=== PATIENT | female | born 1945 | race Caucasian/White ===

== ENCOUNTER 2019-07-16 12:39 | Inpatient (IN) ==
[2019-07-16] MEDS ORDERED: LASIX IV ONE (13:46)
[2019-07-16 15:18] LABS: BASO# 0.02 X1000 (0.0-0.2); BASO% 0.2 % (0.0-0.8); EOS# 0.14 X1000 (0.0-0.7); EOS% 1.7 % (0.0-10.0); HEMATOCRIT 35.8 % (37.0-47.0); HEMOGLOBIN 11.6 g/dL (12.0-16.0); IMM GRAN# 0.02 X1000 (0.0-0.04); IMM GRAN% 0.2 % (0.0-0.5); LYMPH# 2.49 X1000 (1.2-3.4); LYMPH% 29.7 % (20.5-51.1); MCH 30.9 PG (27-31); MCHC 32.4 g/dL (33-37); MCV 95.5 FL (81-99); MONO% 9.6 % (1.7-9.3); MPV 9.7 FL (7.4-10.4); NEUT% 58.6 % (42.2-75.2); PLT 213 X1000 (130-400); RBC 3.75 XMIL (4.2-5.4); RDW 16.1 % (11.5-14.5); WBC 8.37 X1000 (4.8-10.8)
[2019-07-16 15:55] LABS: AGAP 16; ALB/GLOB RATIO 2.2; ALBUMIN 3.9 g/dL (3.5-5.0); ALKALINE PHOSPHATASE 61 U/L (32-104); BUN 17 mg/dL (8-22); CALCIUM 8.9 mg/dL (8.8-10.2); CHLORIDE 100 mmol/L (98-107); COSMO 277; CREATININE 0.8 mg/dL (0.5-0.9); ESTIMATED GFR > 60; GLUCOSE 94 mg/dL (70-104); GOT 28 U/L (10-30); GPT 32 U/L (10-36); POTASSIUM 3.8 mmol/L (3.5-5.1); SODIUM 138 mmol/L (136-145); TCO2 22 mmol/L (25-35); TOTAL BILIRUBIN 0.99 mg/dL (0.20-1.00); TOTAL PROTEIN 5.7 g/dL (6.3-8.3)
[2019-07-16] MEDS: FOLIC ACID PO SCH ×2 (16:06→16:08)
[2019-07-16 16:10] LABS: CK PROFILE 191 U/L (24-173)
[2019-07-16 16:29] LABS: CK-MB 3.73 ng/mL (0.0-5.0)
[2019-07-16] MEDS: TUSSIONEX LIQUID PO PRN (17:20)
[2019-07-16] MEDS: LOVENOX SUBQ SCH (17:20)
--- NOTE | 2019-07-16 17:25 | HISTORY AND PHYSICAL ---
CHIEF COMPLAINT: 1. Dyspnea on exertion. 2. Chest pain right across the precordium. 3. PND orthopnea with mild swelling of feet. HISTORY OF PRESENT ILLNESS: She is a 73-year-old white female previously seen by Dr. Nino and basically came to the office today with above symptoms. The patient has cough, mostly nocturnal cough while she was lying down. She also has dyspnea on exertion and chest pain right across. The patient was seen before by Dr. Boateng, that is her foster care therapist. Apparently, she has a low potassium recently and a monitor was done. I do not have the details. In my office, patient has elevated JVD and gallop with significant 3/6 systolic murmur in the mitral area. Chest x-ray showed cardiomegaly, which is increasing from the previous x-rays and fluid in the right major fissure. No pleural effusions noted. In light of the chest pain and CHF symptoms, the patient was given the options and she would rather be admitted and do a full workup which includes evaluation of the mitral regurgitation murmur. Rule out ischemic heart disease. As a result, the patient has been admitted in [facility]. PAST MEDICAL HISTORY: 1. Diverticulosis and lupus disease under the care of Dr. Trujillo. 2. Vitamin D deficiency. 3. Acid reflux disease. 4. Hypertension. 5. Left knee pain due to meniscal tear. 6. Allergic rhinitis. PAST SURGICAL HISTORY: Reported cholecystectomy, hysterectomy, back surgery, and neck surgery. MEDICATIONS: Cyclosporine Restasis drops one each in both eyes twice daily, trazodone 100 at bedtime, Plaquenil 200 p.o. b.i.d., Lipitor 40 daily ,VESIcare 5 mg in the morning, folic acid 1 mg t.i.d., Estriol 1 mg every day, Protonix 40 daily, Zanaflex 1 mg p.o. b.i.d., amlodipine 10 daily. ALLERGIES: Reported to cephalexin, penicillin, adhesive tape. SOCIAL HISTORY: She is single. Retired senior property accountant. Lives in [place]. Two kids. No smoking. No alcohol abuse. FAMILY HISTORY: Mother had acute respiratory failure, at the age of 72. Brother had kidney cancer. Father of heart attack. HEALTH MAINTENANCE: Flu vaccine 2018, pneumococcal Prevnar 13 in 2017, mammography in November 2018, colonoscopy two months ago by Dr. Saldivar in Med/Surg. REVIEW OF SYSTEMS: HEENT: No headache. No vision problem. No earache. No sore throat. Neck: Chronic neck pain. No goiter. No lymphadenopathy. Cardiopulmonary: Atypical chest pain. Dyspnea on exertion, PND, orthopnea. Mild swelling of feet. Gastrointestinal: No nausea, vomiting, abdominal pain. Genitourinary: No history of hesitancy, frequency, dysuria, hematuria. Musculoskeletal: Chronic back pain. Left knee pain under the knee brace. Skin: No skin rashes. Neurologic: No focal symptoms or weakness. PHYSICAL EXAMINATION: Temperature is 98 degrees, pulse 72, blood pressure 110/61. 5 feet 5 inches, 158 pounds, 2 L nasal cannula. HEENT: Atraumatic, normocephalic. Pupils equal, react to light. TMs are normal. Nose and throat within normal limits. NECK: JVD is elevated. CHEST: Bilateral air entry. No wheezing. No crackles. HEART: Sounds are regular with a gallop and a 3/6 systolic murmur, holosystolic in the left mitral area radiating to the axilla. ABDOMEN: Belly is soft, nontender. No hepatosplenomegaly. EXTREMITIES: 1+ pedal edema. NEUROLOGIC: No focal deficits. INVESTIGATIONS: CBC: White cell count 8.3, hematocrit 35.8, platelets 213,000. SMA 7: Sodium 138, potassium 3.8, BUN 17, creatinine 0.8. CK-MB index was negative. Troponin was negative. ProBNP 5000. Chest x-ray in my office: Cardiomegaly with fluid in the right major fissure. EKG is pending. ASSESSMENT AND PLAN: 1. A 73-year-old white female admitted to the hospital with symptoms/signs of congestive heart failure with severe mitral regurgitation on clinical exam and plan is for echocardiography quantification of the mitral regurgitation murmur . 2. Follow up on electrocardiogram. 3. Intravenous Lasix. Fluid restrictions, daily weights. 4. Rule out ischemic heart disease. Never had a stress test. We will consult with Dr. Boateng and once she is stable will consider further workup based on the foster care therapist. 5. Reconcile home medications. For cough we will use the Tussionex as needed. 6. Deep venous thrombosis prophylaxis with Lovenox and gastrointestinal prophylaxis with Protonix and will follow up. cc: Julio Booth MD
--- NOTE | 2019-07-16 18:33 | EKG Report ---
Test Performed on : 07/16/2019 4:47:32 PM Test Reason : chest pain Blood Pressure : / mmHG Vent. Rate : 073 BPM Atrial Rate : 073 BPM P-R Int : 158 ms QRS Dur : 078 ms QT Int : 420 ms P-R-T Axes : 081 050 062 degrees QTc Int : 462 ms Normal sinus rhythm. Normal ECG When compared with ECG of 02-DEC-2015 22:34, premature atrial complexes. are no longer present Criteria for Septal infarct are no longer present Nonspecific T wave abnormality no longer evident in Inferior leads Nonspecific T wave abnormality no longer evident in Anterior leads Confirmed by Irene RENTERIA, Maxime ([id number]) on 07/20/2019 8:48:19 AM
[2019-07-16] MEDS: RESTASIS 0.05% OPH DROPS BOTH EYES SCH (21:21)
[2019-07-16] MEDS: PLAQUENIL PO SCH (21:25)
[2019-07-16] MEDS: DESYREL PO SCH (21:26)
[2019-07-16] MEDS: ZANAFLEX PO SCH (21:28)
[2019-07-17] MEDS: PROTONIX PO SCH (06:12)
[2019-07-17] MEDS: ESTRACE PO SCH (08:24)
[2019-07-17] MEDS: LIPITOR PO SCH (08:25)
[2019-07-17] MEDS: VESICARE PO SCH (08:28)
[2019-07-17] MEDS: NORVASC PO SCH (08:29)
[2019-07-17] MEDS: ZANAFLEX PO SCH ×2 (08:29→21:15)
[2019-07-17] MEDS: LASIX IV SCH (08:31)
[2019-07-17] MEDS: PLAQUENIL PO SCH ×2 (08:31→21:15)
[2019-07-17] MEDS: RESTASIS 0.05% OPH DROPS BOTH EYES SCH ×2 (08:32→21:15)
[2019-07-17] MEDS: FOLIC ACID PO SCH ×3 (08:37→16:27)
--- NOTE | 2019-07-17 08:47 | PROGRESS NOTE ---
DATE: 07/17/2019 VITAL SIGNS: Stable with temperature 97.6 degrees, heart rate 76, respirations 16, blood pressure 141/62, O2 saturation on room air 96%. SUBJECTIVE: The patient states she feels better with less chest tightness and shortness of breath. LABORATORY DATA: CPK last evening was 191, MB 3.7, troponin less than 0.01. ProBNP 4228. Chest x-ray showed some cardiomegaly. PHYSICAL EXAMINATION: Chest: Chest to auscultation revealed 3/6 systolic ejection murmur at the left sternal border. Extremities: There is no ankle edema. Abdomen: Soft. She has been ambulatory to the bathroom. PLAN: Cardiology consultation, echocardiogram. She is given Lasix 40 mg IV daily. She is also on prophylactic Lovenox. cc: MD Julio Freitas MD
[2019-07-17] MEDS: TUSSIONEX LIQUID PO PRN (13:46)
--- NOTE | 2019-07-17 17:21 | ECHO REPORT ---
ORDER DATE: 07/16/2019 INTERPRETING PHYSICIAN: Dr. Akash Henderson. REQUESTING PHYSICIAN: Julio Booth MD. CLINICAL INDICATIONS: A 73-year-old female with cardiac embolism, CHF. M-MODE MEASUREMENTS: Left ventricle end diastole: 4.6 cm. Left ventricle end systole: 2.7 cm. Posterior wall: 0.9 cm. Interventricular septum: 1.3 cm. Left atrium: 4.4 cm. Aortic root: 2.8 cm. SUMMARY OF 2-DIMENSIONAL IMAGING: The study was difficult. 1. The lower left ventricular systolic function appears to be normal. Ejection fraction estimated at 65-70%. 2. There is evidence of malcoaptation of the leaflets of the mitral valve, leading to severe mitral regurgitation. 3. Pulse wave Doppler of pulmonary venous flow shows systolic reversal of flow. 4. The left atrium is moderately to significantly enlarged. 5. The aortic valve looks grossly normal. 6. The pulse wave Doppler of mitral inflow shows a pattern of a tall E wave and a short A wave. 7. Tissue Doppler of septal and lateral mitral annulus averages 10 cm per second. 8. There is no diastolic dysfunction. 9. The tricuspid valve shows moderately severe degree of regurgitation. 10.Pulmonary systolic pressure is estimated at 101 mmHg. 11.Pulmonic valve appears to be grossly normal with moderate degree of regurgitation. 12.There is no pericardial effusion, mass or thrombus. SUMMARY: In summary: 1. This study is very abnormal with severe degree of mitral regurgitation with malcoaptation of the leaflets of the mitral valve. 2. The left ventricular systolic function is preserved. 3. There is severe pulmonary hypertension. Clinical correlation is strongly recommended. cc: MD Julio Dobson MD [facility]
[2019-07-17] MEDS: LOVENOX SUBQ SCH (17:50)
[2019-07-17] MEDS: TYLENOL PO PRN (21:15)
[2019-07-17] MEDS: DESYREL PO SCH (21:15)
[2019-07-18] MEDS: PROTONIX PO SCH (06:06)
[2019-07-18] MEDS: ESTRACE PO SCH (08:55)
[2019-07-18] MEDS: FOLIC ACID PO SCH ×3 (08:56→16:56)
[2019-07-18] MEDS: VESICARE PO SCH (08:56)
[2019-07-18] MEDS: PLAQUENIL PO SCH ×2 (08:56→20:41)
[2019-07-18] MEDS: ZANAFLEX PO SCH ×2 (08:56→20:41)
[2019-07-18] MEDS: RESTASIS 0.05% OPH DROPS BOTH EYES SCH ×2 (09:13→20:41)
[2019-07-18] MEDS: NORCO-7.5 PO PRN (09:18)
[2019-07-18] MEDS: LASIX IV SCH (09:18)
[2019-07-18] MEDS: ROBITUSSIN-DM PO PRN ×2 (09:25→20:39)
--- NOTE | 2019-07-18 09:25 | PROGRESS NOTE ---
DATE: 07/18/2019 SUBJECTIVE: Vital signs stable with temperature 98 degrees, heart rate 66, respirations 12, blood pressure 133/65, O2 saturation on room air 98%. The patient complains of cough, unrelieved by Tussionex. She also complains of migraine headache. She said Imitrex, in the past, made her feel like she had "lock jaw." Heart to auscultation continues to reveal mid systolic ejection murmur. Echocardiogram showed severe mitral regurgitation with malcoaptation of the leaflets. There was severe pulmonary hypertension. Her usual glass forming engineer is Dr. Boateng. PLAN: Vandiver 7.5 for headache, and Robitussin DM for cough. Ejection fraction on her echo was normal at 65% to 70%. She may need some intervention related to her mitral valve. cc: MD Julio Freitas MD
--- NOTE | 2019-07-18 14:57 | Diag Imaging Result Doc PS360 ---
EXAM: CHEST-2 VIEWS HISTORY: CHF TECHNIQUE: Two views COMPARISON: 02/09/2016 FINDINGS: The lungs are well expanded. The heart is not enlarged. The vessels are not distended. There are mild increased interstitial markings in the left base. No consolidation. No pleural effusions. IMPRESSION: Mild fibrosis Electronically signed by Rasta Jesus 07/18/2019 2:55 PM
[2019-07-18 16:53] LABS: URINE SOURCE CLEAN CATCH
[2019-07-18 16:57] LABS: BILIRUBIN URINE NEGATIVE (NEGATIVE); BLOOD URINE NEGATIVE (NEGATIVE); COLOR STRAW; GLUCOSE URINE NEGATIVE (NEGATIVE); KETONE URINE NEGATIVE (NEGATIVE); LEUKOCYTES URINE NEGATIVE (NEGATIVE); NITRITE URINE NEGATIVE (NEGATIVE); PH URINE 6.5; PROTEIN URINE NEGATIVE (NEGATIVE); SP GRAVITY URINE 1.006; TURBIDITY URINE CLEAR (CLEAR); UR EPITHELIAL CELLS <10 /HPF (<10); URINE BACTERIA NEGATIVE /HPF; URINE RBC <10 /HPF (<10); URINE WBC <10 /HPF (<10); UROBILINOGEN URINE NORMAL (NORMAL)
[2019-07-18] MEDS: LOVENOX SUBQ SCH (17:09)
--- NOTE | 2019-07-18 17:35 | CARDIOLOGY CONSULTATION ---
DATE: 07/18/2019 CONSULTATION REQUESTED BY: Dr. Stevens on behalf of Dr. VINCENZO Booth. PRIMARY ENGINE SERVICE REPAIRER: Dr. Reji Boateng. REASON FOR CONSULTATION: Patient with CHF and mitral valve regurgitation. HISTORY: Mrs. Valentine is a 73-year-old female who presented to the hospital through Dr. Booth's office on 07/16/2019. At that time, she presented to his office complaining of dyspnea, cough, feeling short of breath, having paroxysmal nocturnal dyspnea, and pressure in the chest. All this has been going on for a while and it got to the point where she was not able to put up with it any longer. According to her, Dr. Booth did a chest x-ray and told her that she had heart failure and was admitted to the hospital with that diagnosis. A proBNP level was done on 07/16/2029 and is reported as elevated at 4228 pcg/mL. A 2D echocardiogram, which I read, shows wide-open mitral regurgitation, 4+ severe, with scarring of the mitral valve leaflets and mild coaptation of the leaflets with severe pulmonary hypertension. PAST MEDICAL HISTORY: Positive for lupus erythematosus. She has been treated by Dr. Trujillo. She has had complications with her lungs with atypical pneumonia in the past and she saw a driller's offsider. She has had also issues with her esophagus and has required esophageal stretching by Dr. Saldivar twice. The patient has chronic pain in the hands. SURGICAL HISTORY: She had cholecystectomy. She had three back surgeries and one neck surgery in the past. She had tubal ligation. Hysterectomy. SOCIAL HISTORY: She is . She is retired. She has two daughters. She is not a smoker. She is a retired manufacturing accountant. FAMILY HISTORY: Father had coronary heart disease. The patient has been diagnosed also with a coronary atherosclerosis noted on CT scan of the chest, hypertension and hyperlipidemia in the past. REVIEW OF SYSTEMS: She is not limited to ambulate by the lupus. However, she has chronic pain in the hand from it. 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 She has never had issues with deep venous thrombosis. HOME MEDICATIONS: At the time of this admission included alprazolam 1 mg twice, amlodipine 5 mg at bedtime, aspirin 81 daily, atenolol 50 twice a day, atorvastatin 40 mg in the morning, folic acid 2 mg daily, furosemide 20 mg as needed, gabapentin 300 twice a day, Plaquenil 200 twice a day, leflunomide 20 mg daily, losartan 25 mg daily, Meloxicam 7.5 twice a day, Protonix 40 mg daily, potassium chloride 10 mEq daily, prednisone 20 mg daily, Carafate 1 gram three times a day, Desyrel 100 mg at bedtime. PHYSICAL EXAMINATION: Vital signs: Blood pressure is 117/52, temperature 97.7 degrees, pulse 64, respirations 12. General: The patient is awake, alert, oriented, in no distress. HEENT: Unremarkable. Chest: Shows slightly diminished breath sounds bilaterally. Heart: Sounds are regular rhythm with a prominent systolic murmur over the mitral area, holosystolic, with a third heart sound. Abdomen: Nontender. Soft. No masses. No hepatomegaly. Extremities: Showed no significant edema. Pulses are slightly diminished. Neuro: Nonfocal. Moves four extremities. IMPRESSION: 1. Patient who has severe mitral regurgitation 4+ with severe pulmonary hypertension. The echocardiographic appearance of the mitral leaflets suggests scarring that has developed over the past three years based on review of previous echocardiogram. 2. Lupus erythematosus, systemic. 3. Hyperlipidemia. 4. Hypertension. 5. History of coronary atherosclerosis. 6. Congestive Heart Failure, diastolic, secondary to severe valvular regurgitation FC III-IV NYHA. RECOMMENDATION: At this time, we will run some additional test. We will do a CT scan of the chest to make sure that she does not have pulmonary fibrosis. We will check inflammatory markers. We will we need to determine the activity of her lupus. The case is going to be complicated because of her severe pulmonary hypertension. We may have to organize a transesophageal echocardiogram and right and left heart catheterization. We are going to check coagulation profile. will also check the presence of anticardiolipin antibodies. Further advice will be forthcoming. cc: MD Julio Dobson MD [facility]
[2019-07-18] MEDS ORDERED: BLISTEX MEDICATED BERRY LIP BALM TOP PRN (18:25)
[2019-07-18] MEDS: TYLENOL PO PRN (19:18)
[2019-07-18] MEDS: LIPITOR PO SCH (20:41)
[2019-07-18] MEDS: DESYREL PO SCH (20:41)
[2019-07-18] MEDS: NORVASC PO SCH (20:41)
[2019-07-19] MEDS: PROTONIX PO SCH (06:03)
[2019-07-19] MEDS: ROBITUSSIN-DM PO PRN ×2 (06:03→20:44)
[2019-07-19 06:27] LABS: INR 1.09; PROTIME 14.2 Seconds (11.0-16.0)
[2019-07-19 06:28] LABS: PTT 27.4 Seconds (22.3-41.8)
[2019-07-19 06:48] LABS: C REACTIVE PROT QUANT 6.23 mg/L (0.00-5.00)
--- NOTE | 2019-07-19 08:55 | CARDIOLOGY PROGRESS NOTE ---
DATE: 07/19/2019 CHIEF COMPLAINT: Shortness of breath. SUBJECTIVE: Ms. Valentine still is having some issues with persistent cough. She is not in any pain. She had an uneventful night. OBJECTIVE: Blood pressure is 125/57, temperature 98.3, pulse 63, respirations 17. She is awake, alert, oriented, in no distress. HEENT is unremarkable. Chest: Diminished breath sounds diffusely. Heart sounds are regular and rhythmic with a prominent systolic murmur 3/6 at the apex of the left ventricle with a third heart sound. Abdomen is nontender. Extremities showed no edema. Neurologic: Follows commands. Moves all 4 extremities. IMPRESSION: 1. The patient presented with congestive heart failure, paroxysmal nocturnal dyspnea, functional class 3 to 4, with evidence by echocardiography of severe mitral regurgitation with scarring of the leaflets of the mitral valve. 2. History of systemic lupus erythematosus. 3. History of coronary atherosclerosis. RECOMMENDATIONS: At this time, I am proposing to her to pursue transesophageal echocardiogram. Benefits, risks and complications were discussed. She understands, and she is willing to proceed. We will arrange for today. Further advice will be forthcoming. We have kept her n.p.o. cc: MD Julio Dobson MD
[2019-07-19] MEDS ORDERED: ARAVA PO SCH ×2 (09:00)
--- NOTE | 2019-07-19 09:00 | Diag Imaging Result Doc PS360 ---
CT THORAX W/O CONTRAST - 07/19/2019 INDICATION: pulmonary fibrosis COMPARISON: 03/07/2016 FINDINGS: There is mild peripheral interstitial pulmonary fibrosis. There is mild cardiomegaly. There is moderately advanced triple-vessel calcified coronary artery disease. There are small bilateral pleural effusions. There is interstitial pulmonary edema in the lung bases. No mass or adenopathy. There is a simple left renal cyst. Otherwise upper abdominal images are unremarkable. There are moderate degenerative changes of the spine. No acute or suspicious bony lesion. IMPRESSION: 1. Grossly stable pulmonary fibrosis. 2. Congestive heart failure. This exam was performed using automated exposure control, adjustment of mA or kV according to patient size, and/or use of iterative reconstruction technique Electronically signed by John Keating 07/19/2019 8:57 AM
[2019-07-19] MEDS ORDERED: XYLOCAINE 4% TOPICAL SOLUTION ONE (11:20)
[2019-07-19] MEDS ORDERED: DEMEROL ONE (11:20)
[2019-07-19] MEDS ORDERED: XYLOCAINE 2% VISCOUS ONE (11:20)
[2019-07-19] MEDS ORDERED: SODIUM CHLORIDE 0.9% 10 ML ONE (11:20)
[2019-07-19] MEDS ORDERED: VERSED ONE (11:21)
[2019-07-19] MEDS ORDERED: NS 1,000 ML ONE (11:34)
[2019-07-19] MEDS ORDERED: ANESTHESIA PB SET 88 IN 5742 ONE (11:34)
--- NOTE | 2019-07-19 12:34 | Transesophageal Echocardiogram ---
DATE: 07/19/2019 PHYSICIAN: Dr. Henderson REQUESTING PHYSICIAN: CLINICAL INDICATIONS: Suspected severe mitral regurgitation, severe pulmonary hypertension,abnormal echocardiogram. PROCEDURE: Transesophageal echocardiography DESCRIPTION: The patient was brought to the cardiac clam bed laborer. The throat was anesthetized with viscous lidocaine and Hurricaine. She received 2 doses of Versed 1 mg and Demerol 2 doses of 25 mg each one. The esophagus was intubated without difficulty. Multiple views of the cardiac structures were obtained. SUMMARY OF MAIN FINDINGS: The left atrium and the appendage appear to be dilated. The left atrial appendage is a large structure and shows normal flow velocities. Interatrial septum is intact. Agitated saline was injected, and there was no evidence of PFO. Right atrium is normal. Tricuspid valve is normal. Color flow mapping is unremarkable. Pulmonic valve is normal. Color flow mapping is unremarkable. Right ventricle has normal function. Aortic valve has 3 cusps, and they open normally. Color flow mapping is unremarkable. Ascending aorta and aortic root are unremarkable. Left ventricle shows normal function. Ejection fraction is 65% to 70%. Mitral valve shows mild degree of thickening of the leaflets. Color flow mapping indicates moderate to moderately severe degree of regurgitation. The pulse wave Doppler of pulmonary venous flow shows no evidence of any systolic reversal. The flow is normal in the right upper and left upper pulmonary veins. The descending thoracic aorta shows quite a bit of calcific plaque in the mid thoracic section. There is also some left pleural effusion noted. There is no pericardial effusion. There is no mass or thrombus. CONCLUSIONS: In summary, this transesophageal echocardiogram shows the presence of moderate to moderately severe degree of mitral regurgitation. When compared to the transthoracic echocardiogram that was done just 48 hours or 72 hours ago, there has been a significant change in the degree of regurgitation at the level of the mitral valve. This could potentially represent ischemia that has improved. RECOMMENDATIONS: The patient is advised to pursue right and left heart catheterization to reassess pulmonary hypertension and also evaluate for the possibility of severe coronary artery disease. cc: MD Julio Dobson MD [facility]
[2019-07-19] MEDS: CARAFATE PO SCH ×4 (13:15→18:06)
[2019-07-19] MEDS: FOLIC ACID PO SCH ×4 (13:15→18:06)
[2019-07-19] MEDS: LASIX IV SCH (15:00)
[2019-07-19] MEDS: ASPIRIN EC PO SCH (15:00)
[2019-07-19] MEDS: PLAQUENIL PO SCH ×2 (15:01→20:29)
[2019-07-19] MEDS: RESTASIS 0.05% OPH DROPS BOTH EYES SCH ×2 (15:01→20:30)
[2019-07-19] MEDS: VESICARE PO SCH (15:02)
[2019-07-19] MEDS: KLOR-CON PO SCH (15:02)
[2019-07-19] MEDS: ZANAFLEX PO SCH ×2 (15:06→20:30)
[2019-07-19] MEDS: ESTRACE PO SCH (15:06)
[2019-07-19] MEDS: LOVENOX SUBQ SCH ×2 (15:25→18:07)
[2019-07-19] MEDS: NEURONTIN PO SCH ×2 (15:25→20:30)
--- NOTE | 2019-07-19 18:46 | PROGRESS NOTE ---
DATE: 07/19/2019 SUBJECT: The patient is a little better, lost 10 pounds. Still nocturnal cough. I appreciate Dr. Henderson's consult. Based on his echocardiogram patient has severe MR with severe pulmonary hypertension. It does not look like mitral prolapse. He wants to rule out lupus- induced valvular heart disease. Patient is well known to Dr. Trujillo. REVIEW OF SYSTEMS: Otherwise none reported, going for transesophageal echocardiogram. PHYSICAL EXAM: Temperature is 97.5 degrees, pulse 67, blood pressure 136/54.HEENT: Within normal limits. Neck: Supple. JVD is less pronounced. Chest: Bilateral air entry. Heart: Sounds are regular. Murmur intensity decreased to 3/6 in the mitral area. 1+ pedal edema. Nonfocal exam. INVESTIGATIONS: ESR is 10. CRP 6.23. Cholesterol 130, LDL 64. Urinalysis is clear. RA factor is 10. Lupus inhibitor is unremarkable. ASSESSMENT AND PLAN: 1. Acute congestive heart failure due to diastolic dysfunction with valvular heart disease with severe mitral regurgitation and going for transesophageal echocardiogram. 2. Lupus disease. 3. Hypertension. PLAN: go for GIOVANNA and DVT prophylaxis with Lovenox. Continue IV Lasix and Dr. Henderson wants a rheumatology consult with Dr. Trujillo and also schedule for left heart catheterization to rule out ischemic heart disease and based on all these tests, further recommendations will be followed. Discussed the plan of care with the patient at bedside. I appreciated Dr. Henderson's consult. I spoke to Dr. Trujillo as well. LEVEL OF DOCUMENTATION: 25 minutes. cc: Julio Booth MD [facility]
[2019-07-19] MEDS: LIPITOR PO SCH (20:29)
[2019-07-19] MEDS: ARAVA PO SCH (20:30)
[2019-07-19] MEDS: DESYREL PO SCH (20:31)
[2019-07-19] MEDS: NORVASC PO SCH ×2 (20:31→20:33)
[2019-07-20] MEDS: PROTONIX PO SCH (06:56)
[2019-07-20] MEDS ORDERED: NITROGLYCERIN ONE (07:08)
[2019-07-20] MEDS ORDERED: NS 100 ML ONE (07:08)
[2019-07-20] MEDS ORDERED: HEPARIN 1000 UNITS/NS 2,000 UNIT/1,000 ML IV.SOLN ONE (07:09)
[2019-07-20 07:16] LABS: BASO# 0.02 X1000 (0.0-0.2); BASO% 0.4 % (0.0-0.8); EOS# 0.14 X1000 (0.0-0.7); HEMATOCRIT 34.9 % (37.0-47.0); HEMOGLOBIN 11.2 g/dL (12.0-16.0); LYMPH# 1.35 X1000 (1.2-3.4); LYMPH% 28.5 % (20.5-51.1); MCH 30.9 PG (27-31); MCHC 32.1 g/dL (33-37); MCV 96.1 FL (81-99); MONO% 10.5 % (1.7-9.3); MPV 8.8 FL (7.4-10.4); NEUT# 2.73 X1000 (1.4-6.5); NEUT% 57.6 % (42.2-75.2); PLT 201 X1000 (130-400); RBC 3.63 XMIL (4.2-5.4); RDW 15.7 % (11.5-14.5); WBC 4.74 X1000 (4.8-10.8)
[2019-07-20 07:19] LABS: INR 1.02; PROTIME 13.5 Seconds (11.0-16.0)
[2019-07-20 07:20] LABS: PTT 26.5 Seconds (22.3-41.8)
[2019-07-20 07:33] LABS: AGAP 9; ALB/GLOB RATIO 1.6; ALBUMIN 3.5 g/dL (3.5-5.0); ALKALINE PHOSPHATASE 51 U/L (32-104); BUN 13 mg/dL (8-22); CALCIUM 8.8 mg/dL (8.8-10.2); CHLORIDE 102 mmol/L (98-107); COSMO 279; CREATININE 0.7 mg/dL (0.5-0.9); ESTIMATED GFR > 60; GLUCOSE 93 mg/dL (70-104); GOT 20 U/L (10-30); GPT 19 U/L (10-36); POTASSIUM 3.8 mmol/L (3.5-5.1); SODIUM 140 mmol/L (136-145); TCO2 29 mmol/L (25-35); TOTAL BILIRUBIN 0.56 mg/dL (0.20-1.00); TOTAL PROTEIN 5.7 g/dL (6.3-8.3)
[2019-07-20] MEDS ORDERED: NS 1,000 ML ONE (07:39)
[2019-07-20] MEDS ORDERED: CLAVE PUMP SET NO FILTER 12260 ONE (07:39)
[2019-07-20] MEDS ORDERED: DEMEROL ONE (07:43)
[2019-07-20] MEDS ORDERED: VERSED ONE (07:44)
[2019-07-20] MEDS: ESTRACE PO SCH (08:44)
[2019-07-20] MEDS: ZANAFLEX PO SCH ×2 (08:45→20:23)
--- NOTE | 2019-07-20 09:41 | EKG Report ---
Test Performed on : 07/20/2019 09:30:43 AM Test Reason : post cardiac cath Blood Pressure : / mmHG Vent. Rate : 067 BPM Atrial Rate : 067 BPM P-R Int : 176 ms QRS Dur : 072 ms QT Int : 444 ms P-R-T Axes : 078 001 019 degrees QTc Int : 469 ms Normal sinus rhythm. Normal ECG When compared with ECG of 16-JUL-2019 16:47, No significant change was found Confirmed by Irene RENTERIA, Maxime ([id number]) on 07/21/2019 8:47:17 AM
[2019-07-20] MEDS ORDERED: NS 1,000 ML IV SCH (10:00)
[2019-07-20] MEDS: ASPIRIN EC PO SCH (10:07)
[2019-07-20] MEDS: RESTASIS 0.05% OPH DROPS BOTH EYES SCH ×2 (10:08→20:24)
[2019-07-20] MEDS: VESICARE PO SCH (10:08)
[2019-07-20] MEDS: KLOR-CON PO SCH (10:08)
[2019-07-20] MEDS: FOLIC ACID PO SCH ×3 (10:08→16:43)
[2019-07-20] MEDS: CARAFATE PO SCH ×3 (10:08→16:43)
[2019-07-20] MEDS: PLAQUENIL PO SCH ×2 (10:08→20:23)
[2019-07-20] MEDS: NEURONTIN PO SCH ×2 (10:15→20:24)
[2019-07-20] MEDS: TENORMIN PO SCH ×2 (10:32→20:24)
--- NOTE | 2019-07-20 11:43 | CARDIAC CATH REPORT ---
DATE: 07/20/2019 PROCEDURES: 1. Right heart catheterization. 2. Left heart catheterization. 3. Selective bilateral coronary arteriography. 4. Left ventriculography. 5. Opacification of right femoral artery with selective deployment of Angio-Seal device. HISTORY: This is a 73-year-old female who has a history of lupus erythematosus and a moderate degree of mitral valve regurgitation. She presented with acute congestive heart failure. Initial echocardiogram revealed wide open mitral valve regurgitation with lack of coaptation of the leaflets. The patient subsequently underwent transesophageal echocardiogram on 07/19. At that time, the GIOVANNA showed that her mitral valve regurgitation had decreased to about 2-3 plus instead of 4 plus. Ischemic etiology for the heart failure was suspected. In addition on the GIOVANNA, it was obvious that she had significant plaque in the thoracic aorta. I discussed the procedure with her and she understood and requested to go ahead with right and left heart catheterization. DESCRIPTION: The patient came in to the cardiac track laborer in a fasting state. She received Demerol 25 mg and Versed 1 mg for sedation. The right femoral site was prepped and draped in sterile fashion, anesthetized with lidocaine 1%. A 6 Austrian sheath was inserted into the right femoral vein by following the modified Seldinger technique. Thereafter, I advanced a [place]-Beau catheter to the right pulmonary artery. We measured the pulmonary capillary wedge and the pulmonary arterial pressure. We sampled the blood for pulmonary arterial saturation. Then we performed several cardiac outputs by thermodilution method. Then we flushed the [place]-Beau catheter and we left it in place. Then we punctured the right femoral artery and obtained arterial access into the right femoral artery with a 6 Austrian sheath. I advanced a 6 Austrian pigtail catheter to the ascending aorta and then we negotiated the aortic valve and measured the left ventricular pressure. The LVEDP initially was low and therefore we felt that a ventriculogram was appropriate. We injected 36 mL of Omnipaque at 10 mL/second. Good opacification of the left ventricular chamber was obtained. Then at that time, we measured again the pressure in the right pulmonary artery and again a pulmonary capillary wedge pressure. We did pullback from the pulmonary arterial location into the right ventricle and then into the right atrium. The pressures were measured at each level from pullback. I must mention that we also sampled the blood from the femoral artery to calculate the Uzair cardiac output. The left ventricular pressure was remeasured again. We pulled back from the left ventricle into the ascending aorta. Then the pigtail catheter was removed and the sheath was flushed. Then we advanced a left Eugenia catheter 6 Austrian to the ascending aorta however the engagement of the left main coronary artery was suboptimal. Then the right coronary artery was opacified with a 6 Austrian right Eugenia 4 catheter in several views. We elected to switch to a 5 Austrian left Eugenia 3.5 catheter. We opacified the left coronary artery in several views. At the end of the procedure, all the catheters were removed, and the sheath was flushed. Right femoral artery opacified and an Angio-Seal device was deployed achieving excellent hemostasis. The venous sheath was removed manually and hemostasis was accomplished by hand compression. The patient tolerated the procedure quite well without any other complications. SUMMARY OF HEMODYNAMIC FINDINGS: On initial insertion of the pulmonary catheter, the first pulmonary pressure determined was 44/11 with a mean of 23, and the first pulmonary capillary wedge pressure was 16/19 with a mean of 15. A "V" wave was noted that appeared to be in the order of 20 mmHg. Then we advanced the pigtail catheter to the ascending aorta and the pressure in the ascending aorta initially was 163/61 with a mean of 104. Left ventricular pressure was 161/13 mm Hg.(before LV gram) Then after performing the LV gram, we remeasured the pulmonary arterial pressure. The pulmonary pressure the second time around was 58/18 with a mean of 38 mm Hg. The pulmonary capillary wedge pressure on the second round after the LV gram was 22/37 with a mean of 26 mm Hg. The "V" wave almost reached 40 mmHg. The right ventricular pressure from pullback was measured at 58/16 and the right atrial pressure was measured 11 mmHg. The LVedP post LV gram went up to 23 mmHg. The final left ventricular pressure was 131/23 although just before pullback the systolic Left ventricular pressure appeared to be very close to 140 mm Hg and the central aortic pressure after pullback was 158/56. There was a wide pulse pressure difference. The Uzair cardiac output was 5.27 L/minute. The femoral artery saturation was 97%, pulmonary saturation was 77%. The cardiac output by thermodilution was checked 6 times and the average was 4.65 L/minute with an index of 2.7 L/minute/m2. In summary, this right and left catheterization showed a mean pulmonary arterial pressure of 38 mmHg post LV gram with a V wave of 40 mmHg post LV gram, a cardiac index of 2.7 L/minute, LVEDP that went from 13 to 23 mmHg post LV gram. SUMMARY OF THE ANGIOGRAPHIC FINDINGS: 1. Left main coronary artery: The left main coronary artery appears to be arising from the left coronary sinus of Valsalva and it appears to be free of obstruction. The left main coronary artery is calcified as well as the LAD but there is no significant stenosis. 2. Left anterior descending coronary artery: The vessel appears to be anatomically normal, gives rise to a tiny diagonal then a smaller diagonal and then more distally a bifurcating very good size diagonal vessel. The distal LAD is a good size vessel that wraps around the apex of the left ventricle free of any significant obstruction. 3. Circumflex coronary artery: The circumflex is a nondominant system, gives rise to a high lateral branch that is normal and a terminal circumflex that is a good size and supplies the posterolateral wall and in turn also gives rise to a sinus harpal branch. 4. Right coronary artery: The right coronary artery is a dominant vessel. It shows some calcification. Gives rise to conus branch and several right ventricular branches. More distally gives rise to a posterior descending branch and a posterolateral vessel. The right coronary artery is free of any obstruction. LEFT VENTRICULOGRAM: Left ventriculogram in the 30 degree HAY[place]OD projection with caudal angulation showed hyperdynamic ventricle due to PVCs and a [id number] degree of mitral valve regurgitation. OPACIFICATION OF THE RIGHT FEMORAL ARTERY: Free of obstruction. Angio-Seal device was deployed successfully. FLUOROSCOPY: Fluoroscopy reveals calcification of the coronary vessels especially the LAD and some of the right coronary artery. There is also calcification of the aorta especially the arch. SUMMARY: This study shows: 1. Moderate pulmonary hypertension, mean pulmonary pressure post LV gram is 38 mmHg. Initial LVedP before LV gram was 13 mmHg mean. Elevated LVEDP post LV gram up to 23 mm Hg. 2. Mild degree of coronary atherosclerosis with no evidence of any coronary obstruction. Left main, LAD, circumflex, and right coronary artery appear to be free of any obstruction. 3. Hyperdynamic left ventricle, ejection fraction 70% to 75%. 4. Pxgy-rj-[id number] degree of mitral valve regurgitation noted in this heart catheterization. 5. No aortic stenosis. 6. Unremarkable right femoral artery with successful deployment of Angio-Seal device. RECOMMENDATIONS: At this time, we will treat the patient medically. We will discuss with Cardiovascular marine consultant and probably second opinion from the Cardiovascular service of [facility]. The interesting finding in this case is that her mean pulmonary pressure and also her LVEDP go up by at least 10-15 points after the LV gram suggesting that this patient does not tolerate volume loads very well. In addition, she has a significant wide pulse pressure that is not due to aortic valve regurgitation. I believe that she has significant stiffness of the aorta and that may be creating significant afterload particularly when she is given a volume load that makes her blood pressure rise sharply and that may be throwing her into acute heart failure because of dilatation of the mitral annulus and subsequent significant mitral valve regurgitation. This will be discussed at length with second opinion physicians. At this time, the patient is stable. We will observe her clinical course, and we will see what else we need to do while she is in the hospital. cc: MD Julio Dobson MD MTDD
[2019-07-20] MEDS: ROBITUSSIN-DM PO PRN ×2 (13:33→20:33)
[2019-07-20] MEDS: TYLENOL PO PRN ×2 (13:39→20:23)
[2019-07-20] MEDS: NORVASC PO SCH (20:23)
[2019-07-20] MEDS: LIPITOR PO SCH (20:23)
[2019-07-20] MEDS: LOVENOX SUBQ SCH (20:24)
[2019-07-20] MEDS: DESYREL PO SCH (21:29)
[2019-07-20] MEDS: ARAVA PO SCH (21:30)
--- NOTE | 2019-07-21 02:02 | PROGRESS NOTE ---
DATE: 07/20/2019 SUBJECTIVE: I appreciated Dr. Henderson and Dr. Trujillo's input. She has history of overlapping lupus and rheumatoid arthritis, under Dr. Trujillo with Plaquenil and Arava. Apparently, the patient had GIOVANNA and left heart catheterization. Findings are consistent with [id number] MR with pulmonary hypertension. Clinically, patient is better after diuresis and left heart catheterization findings noted no flow-limiting lesions. Excellent LV function. The patient's symptoms are improved. PHYSICAL EXAMINATION: Vital signs: Temperature is 98 degrees, pulse 72, blood pressure is stable. HEENT: Within normal limits. Neck: Supple. Chest: Bilateral air entry. Heart: Sounds are regular. Murmur is not really appreciated. No pedal edema. LABS: White cell count 4.7, hematocrit 34.9, platelet 201,000. PT/INR is normal. SMA-12 is normal. Total protein 5.7. LDL 64. ASSESSMENT AND PLAN: 1. Acute diastolic heart failure. 2. Severe to moderate mitral regurgitation. 3. No flow-limiting coronary artery disease. 4. Hypertension. PLAN: Fluid restriction, daily weights, p.o. Lasix, and optimize the treatment for blood pressure. Outpatient referral for the evaluation of mitral clips replacement. In terms of connective tissue disease, I appreciated Dr. Trujillo's input. At this time, there is no active disease. Findings discussed with the patient and will discharge in the morning. Will follow up as an outpatient. LEVEL OF DOCUMENTATION: 25 minutes. cc: Julio Booth MD
[2019-07-21] MEDS: TYLENOL PO PRN (03:58)
[2019-07-21 06:35] LABS: AGAP 15; BUN 9 mg/dL (8-22); CALCIUM 8.9 mg/dL (8.8-10.2); CHLORIDE 103 mmol/L (98-107); COSMO 278; CREATININE 0.6 mg/dL (0.5-0.9); ESTIMATED GFR > 60; GLUCOSE 97 mg/dL (70-104); MAGNESIUM 1.9 mg/dL (1.5-2.7); POTASSIUM 3.9 mmol/L (3.5-5.1); SODIUM 140 mmol/L (136-145); TCO2 22 mmol/L (25-35)
[2019-07-21] MEDS: PROTONIX PO SCH (06:39)
[2019-07-21] MEDS: NORCO-7.5 PO PRN (06:43)
[2019-07-21 07:22] VITALS: BP 154/62
[2019-07-21] MEDS: FOLIC ACID PO SCH (08:57)
[2019-07-21] MEDS: NEURONTIN PO SCH (08:57)
[2019-07-21] MEDS: CARAFATE PO SCH (08:57)
[2019-07-21] MEDS: ZANAFLEX PO SCH (08:57)
[2019-07-21] MEDS: KLOR-CON PO SCH (08:57)
[2019-07-21] MEDS: VESICARE PO SCH (08:57)
[2019-07-21] MEDS: RESTASIS 0.05% OPH DROPS BOTH EYES SCH (08:57)
[2019-07-21] MEDS: ESTRACE PO SCH (08:58)
[2019-07-21] MEDS: TENORMIN PO SCH (09:03)
[2019-07-21] MEDS: ASPIRIN EC PO SCH (09:03)
[2019-07-21] MEDS: PLAQUENIL PO SCH (09:03)
--- NOTE | 2019-07-21 10:19 | CARDIOLOGY PROGRESS NOTE ---
DATE: 07/21/2019 CHIEF COMPLAINT: Shortness of breath. Heart murmur. SUBJECTIVE: Ms. Chance had an uneventful night. Her right groin is not swollen. She has had just a little bit of discomfort, however, there is no ecchymosis. The posterior tibialis pulse is normal. She denies having chest pain, no dyspnea. OBJECTIVE: Vital signs: Blood pressure 154/62, temperature 97.9, pulse 68, respirations 18. General: She is awake, alert, oriented, in no distress. HEENT: Unremarkable. Chest: Sounds clear to auscultation and percussion. Heart sounds: She has a systolic murmur over the apex. The heart sounds are regular and rhythmic. Abdomen: Nontender. Extremities: Showed no edema. Neurologic exam: Follows commands, moves all 4 extremities. BLOOD WORK: Today, sodium 140, potassium 3.9, BUN 9, creatinine 0.6. Magnesium 1.9. IMPRESSION: 1. Patient who presented with acute congestive heart failure and severe mitral regurgitation. That has improved. 2. Patient has probably some mitral valve prolapse as a baseline condition. 3. Coronary artery disease, minimal coronary artery calcification noted on the cardiac catheterization. 4. Moderate pulmonary hypertension documented on the heart catheterization. 5. Atherosclerosis of the aorta. 6. History of hypertension and history of lupus. RECOMMENDATIONS: At this time, we will work on optimizing blood pressure and risk factors. Her LDL cholesterol is 64 which is optimal, HDL is 55 which is optimal, cholesterol total is 134. Triglycerides are 130. We will follow her at the office. I may consider getting a second opinion from [facility] to look into the case and see if there is anything else that they would suggest. We will arrange for a followup at the office in a couple of months. Dr. Booth will discharge patient home today probably. cc: MD Julio Dobson MD
--- NOTE | 2019-07-22 19:42 | DISCHARGE SUMMARY ---
ADMISSION DATE: 07/16/2019 DISCHARGE DATE: 07/21/2019 DISCHARGING DIAGNOSIS: Acute congestive heart failure due to diastolic dysfunction with severe mitral regurgitation, probably chronic mitral wall prolapse disease exacerbating by volume overload and hypertension. SECONDARY DIAGNOSES: 1. Diverticulosis. 2. Left knee pain due to meniscal tear. 3. Systemic lupus disease/rheumatoid arthritis under the care of Dr. Trujillo. 4. Vitamin D deficiency. 5. Hypertension. 6. Allergic rhinitis. 7. Acid reflux disease. 8. Overactive bladder. CONSULTS: Dr. Henderson, Dr. Trujillo PROCEDURES: 1. A 2D echocardiography, left ventricular function of 65% to 75%, mild coaptation of the mitral leaflets with severe mitral regurgitation. Severe tricuspid regurgitation. Estimated pulmonic systolic pressure 100 mm. 2. Transesophageal echocardiography, findings are moderate to severe mitral regurgitation, ejection fraction of 65% to 70%. 3. Left heart catheterization, right heart catheterization, findings are mild to moderate mitral regurgitation, no flow-limiting obstructive lesions. Mild to moderate pulmonary hypertension exacerbating by volume overload. LABORATORY DATA: The laboratory data is as follows: CBC shows white cell count 4.7, hematocrit 34, platelets 201,000. PT 13, INR 1. Sodium 140, potassium 3.9, chloride 103, BUN 9, creatinine 0.6, magnesium 1.9. LFTs were normal. CRP 6.23. ProBNP 4000. Triglycerides 130, cholesterol 134, LDL 64. Urinalysis is clear. RA factor is negative. BUBBA was positive. Double-stranded DNA was positive 36. Complements C3-C4 normal. RADIOLOGY PROCEDURES: CT of the chest on 07/19/2019, stable pulmonary fibrosis, congestive heart failure. BRIEF HISTORY/HOSPITAL COURSE: She is a 73-year-old white female who was seen in our clinic with shortness of breath on exertion, PND, orthopnea, nocturnal cough, swelling of feet. Upon examination, patient has elevated JVD, significant systolic murmur in mitral area radiating to the left axilla of 4/6, associated with loud P2. She also has summation gallop. Chest x-ray showed cardiomegaly with fluid in the right major fissure. Options are discussed with the patient. The patient told me she has history of mitral valve prolapse, as well as lupus disease, under care of Dr. Trujillo. She was seen before by Dr. Nino. The patient was admitted in [facility] at her request, started on fluid restriction, daily weight, IV Lasix. She lost 10 liters of fluid. Cardiology consult was obtained. After diuresis and controlling blood pressure, the MR murmur was significantly decreased. Her symptoms were also improved. Further workup revealed she has a mild coaptation of mitral valve disease, rule out ischemic heart disease by left heart catheterization. She is decompensating when the blood pressure goes up, increasing volume overload as per the catheterization. At some point, she needs to replace the valve either the clip or mitral valve replacement. Dr. Henderson recommended second opinion with intervention digital campaign manager down the line. In the meantime, patient was advised to continue fluid restrictions, low-salt, and Lasix and control blood pressure. Upon auscultation, the murmur was significantly decreased at 2/6 after diuresis. At the time of discharge, the patient's weight is 141 pounds and that has been decreased from 158. She lost about 17 pounds. SMA-7 was normal. DISCHARGE INSTRUCTIONS/DISCHARGE MEDICATIONS: 1. Trazodone 100 mg at bedtime, Plaquenil 200 p.o. b.i.d., Lipitor 40 daily, folic acid 3 mg daily, Protonix 40 daily, aspirin 81 mg daily, atenolol 50 p.o. b.i.d., gabapentin 300 p.o. b.i.d., losartan 25 daily, Mobic 7.5 mg b.i.d., Singulair 10 daily, Ditropan-XL 5 mg daily, Breo 100/25 1 puff daily, amlodipine 5 mg daily, Spiriva 20 mg daily, potassium 10 mEq daily, Lasix 20 daily. 2. Discharge weight is 141 pounds. 3. As per the history, patient was up-to-date on influenza vaccine, as well as pneumococcal vaccine. cc: MD Akash Graves MD Dr. Johnson
== END 2019-07-21 10:24 | disposition home or self-care (01) | DRG 287 ==
LOC: DIRADM 12:39 → 2N 13:59
PROVIDERS: ADMIT Internal Medicine; ATTEND Internal Medicine